=== PATIENT | female | born 1945 | race Hispanic/Latino ===

== ENCOUNTER 2020-08-29 10:29 | Outpatient (CLI) | payer MEDICARE, BC ==
--- NOTE | 2020-08-29 11:22 | Mammography Report ---
DIGITAL SCREENING MAMMOGRAM WITH CAD, 08/29/2020 CLINICAL INFORMATION / INDICATION: Routine screening mammography. TECHNIQUE: Digital bilateral 2D mammography was obtained in the craniocaudal and mediolateral obliqu e projections. This examination was interpreted with the benefit of Computer-Aided Detection analysis . COMPARISON: 07/06/2019, 07/04/2018 FINDINGS: Breast Density: There are scattered areas of fibroglandular density. No dominant mass, suspicious calcifications, or architectural distortion in the right breast. There are new clustered calcifications in the upper outer quadrant of the left breast, posterior dept h. A biopsy clip is present a few centimeters from these calcifications. A second biopsy clip is seen in the 6:00 location of the left breast. Additionally, there is a small nodular density projecting o facundo the pectoralis muscle in the left breast on MLO view only. No other significant interval change n oted. IMPRESSION: New clustered calcifications are present in the left breast, upper outer quadrant. Recomm end left magnification views. Additionally, recommend spot compression views for small nodular densit y projecting in the left posterior breast on MLO view. Spot compression view should include an exagge rated cc view. Follow up recommendation: Spot compression views and magnification views. BI-RADS Category 0: Incomplete. Needs additional imaging evaluation and/or prior mammograms for elvin quezada. A "normal" or negative report should not discourage follow up or biopsy of a clinically significant f inding. A written summary of these findings will be mailed to the patient. The patient will be entered into a mammography reporting system which will generate a reminder letter for the patient's next appointmen t at the appropriate interval. The [employer] recommends yearly mammograms starting at age 40 and continuing as l adiel as a woman is in good health. Breast MRI is recommended for women with an approximate 20-25% or greater lifetime risk of breast cancer, including women with a strong family history of breast or ova morgan cancer or who have been treated for Hodgkin's disease. Signer Name: Belia Hinojosa MD Signed: 08/29/2020 11:18 AM Workstation Name: [email or web address]
== END 2020-08-29 10:30 | disposition home or self-care (01) ==
LOC: SPVWC 10:29
PROVIDERS: ATTEND Surgery
DX: Z12.31 Encounter for screening mammogram for malignant neoplasm of breast (principal); R92.1 Mammographic calcification found on diagnostic imaging of breast; N63.20 Unspecified lump in the left breast, unspecified quadrant
CPT/HCPCS: 77067

== ENCOUNTER 2020-09-12 10:13 | Outpatient (CLI) | payer MEDICARE, BC ==
--- NOTE | 2020-09-12 11:36 | Mammography Report ---
DIGITAL DIAGNOSTIC MAMMOGRAM WITH CAD , 09/12/2020 CLINICAL INFORMATION / INDICATION: ABNORMAL MAMMO R92.8 TECHNIQUE: Digital left mammographic imaging was performed. Magnification views were obtained. This examination was interpreted with the benefit of Computer-aided Detection analysis. COMPARISON: Recent mammogram 08/29/2020 and older mammograms including 07/06/2019, 07/04/2018 FINDINGS: Breast Density: There are scattered areas of fibroglandular density. Magnification views of the left breast confirm the presence of clustered heterogeneous calcifications in the 2:00 location, posterior depth. The calcifications are approximately 2 cm inferomedial to a b iopsy clip placed back in 2012. These calcifications appear to represent a new cluster of calcificati ons and not the previous area that was biopsied in 2013. The questionable nodular density seen projecting on the pectoralis muscle on recent screening mammogr am does not persist with additional imaging and is therefore benign. IMPRESSION: Small cluster calcifications is present in the left breast at 2:00, posterior depth requi ring further evaluation with stereotactic biopsy. Follow up recommendation: Biopsy BI-RADS Category 4: Suspicious for Malignancy. A "normal" or negative report should not discourage follow up or biopsy of a clinically significant f inding. A written summary of these findings will be mailed to the patient. The patient will be entered into a mammography reporting system which will generate a reminder letter for the patient's next appointmen t at the appropriate interval. According to the [employer], yearly mammograms are recommended starting at age 40 and continuing as long as a woman is in good health. Breast MRI is recommended for women with an linnette roximately 20-25% or greater lifetime risk of breast cancer, including women with a strong family his tory of breast or ovarian cancer and women who have been treated for Hodgkin's disease. Signer Name: Belia Hinojosa MD Signed: 09/12/2020 11:31 AM Workstation Name: [id number]
== END 2020-09-12 10:14 | disposition home or self-care (01) ==
LOC: SPVWC 10:13
PROVIDERS: ATTEND Surgery
DX: R92.1 Mammographic calcification found on diagnostic imaging of breast (principal)